=== PATIENT | male | born 1980 | race Caucasian/White ===

== ENCOUNTER 2017-06-07 23:52 | Emergency (ER) | payer MEDICAID ==
[~2017-06-07] VITALS: Ht 172.7 cm; Wt 106.6 kg
[~2017-06-07 23:52] MED LIST: ANAPROX DS550 MG PO; ATIVAN1 MG PO; CLARITIN10 MG PO; CLINDAMYCIN HC300 MG PO; CLINDAMYCIN150 MG PO; DOXYCYCLINE MO100 MG PO; FLONASE0.05 MG/AC NS; HYDROCODONE BIT1 T11 PO; MIRALAX POWDER17 G1 PO; MOTRIN800 MG PO; Motrin,Rufen800 MG PO; NASONEX0.05 MG/AC NAS; PREVACID30 MG PO; SUDAFED60 MG PO; VOLTAREN50 M1 PO; ZITHROMAX Z PA250 MG PO; ZITHROMAX250 MG PO; ZITHROMAX500 MG PO; ZOFRAN ODT4 MG SL; ZYRTEC10 M2 PO
[2017-06-08] MEDS ORDERED: CLINDAMYCIN HC300 MG PO (00:31)
== END 2017-06-08 00:46 | disposition home or self-care (01) ==
LOC: ED 23:52
DX: K08.89 Other specified disorders of teeth and supporting structures (principal); Z88.0 Allergy status to penicillin; Z88.8 Allergy status to other drugs, medicaments and biological substances

== ENCOUNTER 2018-04-27 00:21 | Emergency (ER) | payer SELFPAY ==
[~2018-04-27] VITALS: Ht 172.7 cm; Wt 108.9 kg
[2018-04-27 00:51] LABS: BASO # 0.1 10*3/uL (0.0-0.1); BASO % 0.6 % (0.0-1.0); EOS # 0.1 10*3/uL (0.0-0.4); EOS % 0.7 % (1.0-4.0); HEMATOCRIT 47.2 % (42.0-52.0); HEMOGLOBIN 16.5 g/dl (14.0-18.0); LYMPH # 2.4 10*3/uL (1.3-4.4); LYMPH % 29.6 % (27.0-41.0); MEAN CORPUSCULAR HGB 29.7 pg (27.0-31.0); MEAN PLATELET VOLUME 10.2 fl (9.6-12.3); MONO # 0.6 10*3/uL (0.1-1.0); MONO % 7.2 % (3.0-9.0); NEUT # 4.9 10*3/uL (2.3-7.9); NEUT % 61.5 % (47.0-73.0); PLATELET COUNT AUTOMATED 233 10*3/uL (130-400); RED BLOOD COUNT 5.55 10*6/uL (4.50-5.90); RED CELL DISTRI WIDTH 12.5 % (0-14.5)
[2018-04-27 01:06] LABS: ALBUMIN 3.9 gm/dl (3.1-4.5); ALKALINE PHOSPHATASE 78 U/L (45-117); BUN 15 mg/dl (7-24); CHLORIDE 105 mmol/L (98-107); CREATININE 1.09 mg/dL (0.70-1.30); LIPASE 90 U/L (73-393); POTASSIUM 3.4 mmol/L (3.5-5.1); SGOT/AST 20 IU/L (3-35); SGPT/ALT 59 U/L (12-78); SODIUM 137 mmol/L (136-145); TOTAL PROTEIN 7.8 gm/dL (6.4-8.2)
[2018-04-27] MEDS ORDERED: COLACE100 MG PO (01:42)
[2018-05-29] MEDS ORDERED: IBUPROFEN600 MG PO (17:00)
[2018-05-29] MEDS ORDERED: CLINDAMYCIN HC300 MG PO (17:00)
[2018-06-21] MEDS ORDERED: ASPIRIN ADULT L81 M1 PO (23:18)
[2018-06-23] MEDS ORDERED: VITAMIN D50000 UNIT PO (15:53)
[2018-06-23] MEDS ORDERED: ATORVASTATIN CA40 M1 PO (15:53)
== END 2018-04-27 01:47 | disposition home or self-care (01) ==
LOC: ED 00:21
PROVIDERS: Physician Assistant
DX: K59.00 Constipation, unspecified (principal); R10.9 Unspecified abdominal pain; E78.00 Pure hypercholesterolemia, unspecified; Z88.0 Allergy status to penicillin; Z88.8 Allergy status to other drugs, medicaments and biological substances

== ENCOUNTER 2018-06-19 22:50 | Emergency (ER) | payer SELFPAY ==
[~2018-06-19] VITALS: Ht 172.7 cm; Wt 111.1 kg
--- NOTE | ~2018-06-19 | EKG ---
[place], [place] ELECTROCARDIOGRAM REPORT NAME: LEAH CLEMONS UNIT #: [id number] ROOM: DOCTOR: EPIPHANY DRAFT REPORT BIRTHDATE: [birth year] [facility] Test Date: 2018-06-19 Test Time: 23:30:22 Pat Name: LEAH CLEMONS Department: Room: Gender: Private Pilot: Nicole Anderson : 1980 Requested By: BIBI SEGOVIA Order Number: [id number] Reading MD: Tiffany Underwood MD Measurements Intervals [place] Rate: 98 P: 53 NE: 175 QRS: 148 QRSD: 97 T: 22 QT: 343 QTc: 438 Interpretive Statements Sinus rhythm Left posterior fascicular block Abnormal R-wave progression, late transition Baseline wander in lead(s) V4 Electronically Signed On 06-20-2018 14:07:45 PDT by Tiffany Underwood MD CM:EKGRPT:ELECTROCARDIOGRAM REPORT [id number] BIBI CRISTINA DRAFT REPORT BIBI SEGOVIA DO
[~2018-06-19 22:50] MED LIST changes: +COLACE100 MG PO; +IBUPROFEN600 MG PO
[2018-06-20 00:09] LABS: BASO # 0.1 10*3/uL (0.0-0.1); BASO % 0.4 % (0.0-1.0); EOS % 0.2 % (1.0-4.0); HEMATOCRIT 44.6 % (42.0-52.0); HEMOGLOBIN 15.3 g/dl (14.0-18.0); LYMPH # 1.6 10*3/uL (1.3-4.4); LYMPH % 12.7 % (27.0-41.0); MEAN CELL VOLUME 87.1 fl (80.0-94.0); MEAN CORPUSCULAR HGB 29.9 pg (27.0-31.0); MEAN CORPUSCULAR HGB CONC 34.3 g/dl (33.0-37.0); MEAN PLATELET VOLUME 10.5 fl (9.6-12.3); MONO # 0.7 10*3/uL (0.1-1.0); MONO % 5.6 % (3.0-9.0); NEUT % 80.8 % (47.0-73.0); PLATELET COUNT AUTOMATED 229 10*3/uL (130-400); RED BLOOD COUNT 5.12 10*6/uL (4.50-5.90); RED CELL DISTRI WIDTH 12.8 % (0-14.5); WHITE BLOOD COUNT 12.4 10*3/uL (4.8-10.8)
[2018-06-20 00:14] LABS: ALBUMIN 4.2 gm/dl (3.1-4.5); ALKALINE PHOSPHATASE 81 U/L (45-117); BUN 14 mg/dl (7-24); CHLORIDE 105 mmol/L (98-107); POTASSIUM 3.6 mmol/L (3.5-5.1); SGOT/AST 22 IU/L (3-35); SGPT/ALT 58 U/L (12-78); SODIUM 137 mmol/L (136-145); TOTAL PROTEIN 7.8 gm/dL (6.4-8.2); TROPONIN I < 0.015 ng/ml (<0.045)
[2018-06-21] MEDS ORDERED: ASPIRIN ADULT L81 M1 PO (23:18)
[2018-06-23] MEDS ORDERED: VITAMIN D50000 UNIT PO (15:53)
[2018-06-23] MEDS ORDERED: ATORVASTATIN CA40 M1 PO (15:53)
[2018-09-09] MEDS ORDERED: ANAPROX DS550 MG PO (22:13)
== END 2018-06-20 00:52 | disposition home or self-care (01) ==
LOC: ED 22:50
PROVIDERS: Student in an Organized Health Care Education/Training Program
DX: R00.2 Palpitations (principal); I10 Essential (primary) hypertension; R53.1 Weakness; R42 Dizziness and giddiness; R25.2 Cramp and spasm; Z88.0 Allergy status to penicillin; Z88.8 Allergy status to other drugs, medicaments and biological substances

== ENCOUNTER 2018-07-08 11:22 | Emergency (ER) | payer SELFPAY ==
[~2018-07-08] VITALS: Ht 172.7 cm; Wt 108.9 kg
--- NOTE | ~2018-07-08 | EKG ---
[place], [place] ELECTROCARDIOGRAM REPORT NAME: LEAH CLEMONS UNIT #: [id number] ROOM: DOCTOR: EPIPHANY DRAFT REPORT BIRTHDATE: [birth year] [facility] Test Date: 2018-07-08 Test Time: 11:53:00 Pat Name: LEAH CLEMONS Department: Room: Gender: Human Resources Compliance Manager: Milly Mckeon : 1980 Requested By: JONH FARLEY Order Number: [id number] Reading MD: Benny Saucedo MD Measurements Intervals [place] Rate: 69 P: 39 [place]: 178 QRS: 23 QRSD: 93 T: 36 QT: 363 QTc: 389 Interpretive Statements Sinus rhythm Compared to ECG 06/22/2018 15:58:22 No significant changes Electronically Signed On 07-12-2018 3:45:15 PDT by Benny Saucedo MD CM:EKGRPT:ELECTROCARDIOGRAM REPORT [id number] JONH CRISTINA DRAFT REPORT JONH FARLEY DO
[~2018-07-08 11:22] MED LIST changes: +ASPIRIN ADULT L81 M1 PO; +ATORVASTATIN CA40 M1 PO; +VITAMIN D50000 UNIT PO
[2018-07-08 11:54] LABS: BASO % 0.6 % (0.0-1.0); EOS % 0.3 % (1.0-4.0); HEMATOCRIT 46.4 % (42.0-52.0); HEMOGLOBIN 15.9 g/dl (14.0-18.0); LYMPH # 1.6 10*3/uL (1.3-4.4); LYMPH % 22.3 % (27.0-41.0); MEAN CELL VOLUME 86.6 fl (80.0-94.0); MEAN CORPUSCULAR HGB 29.7 pg (27.0-31.0); MEAN CORPUSCULAR HGB CONC 34.3 g/dl (33.0-37.0); MEAN PLATELET VOLUME 10.6 fl (9.6-12.3); MONO # 0.5 10*3/uL (0.1-1.0); NEUT # 4.9 10*3/uL (2.3-7.9); NEUT % 69.2 % (47.0-73.0); PLATELET COUNT AUTOMATED 216 10*3/uL (130-400); RED BLOOD COUNT 5.36 10*6/uL (4.50-5.90); WHITE BLOOD COUNT 7.1 10*3/uL (4.8-10.8)
[2018-07-08 12:04] LABS: ACT PARTIAL THROMBO TIME 25.2 SECONDS (20.8-31.5)
[2018-07-08 12:10] LABS: ALBUMIN 4.3 gm/dl (3.1-4.5); ALKALINE PHOSPHATASE 84 U/L (45-117); BUN 14 mg/dl (7-24); CHLORIDE 107 mmol/L (98-107); CREATININE 1.02 mg/dL (0.70-1.30); LIPASE 63 U/L (73-393); POTASSIUM 4.1 mmol/L (3.5-5.1); SGOT/AST 26 IU/L (3-35); SGPT/ALT 71 U/L (12-78); SODIUM 140 mmol/L (136-145); TOTAL PROTEIN 7.9 gm/dL (6.4-8.2)
[2018-07-08 12:11] LABS: TROPONIN I < 0.015 ng/ml (<0.045)
[2018-07-08] MEDS ORDERED: EC NAPROSYN500 MG PO (15:13)
[2018-09-09] MEDS ORDERED: ANAPROX DS550 MG PO (22:13)
== END 2018-07-08 15:17 | disposition home or self-care (01) ==
LOC: ED 11:22
PROVIDERS: Emergency Medicine
DX: R51 Headache (principal); R53.83 Other fatigue; H53.8 Other visual disturbances; K21.9 Gastro-esophageal reflux disease without esophagitis; E78.5 Hyperlipidemia, unspecified; E66.01 Morbid (severe) obesity due to excess calories; Z88.0 Allergy status to penicillin; Z91.018 Allergy to other foods; Z88.8 Allergy status to other drugs, medicaments and biological substances; Z79.82 Long term (current) use of aspirin; Z87.891 Personal history of nicotine dependence

== ENCOUNTER 2018-07-27 12:01 | Emergency (ER) | payer SELFPAY ==
[~2018-07-27] VITALS: Ht 172.7 cm; Wt 109.8 kg
--- NOTE | ~2018-07-27 | EKG ---
[place], [place] ELECTROCARDIOGRAM REPORT NAME: LEAH CLEMONS UNIT #: [id number] ROOM: DOCTOR: EPIPHANY DRAFT REPORT BIRTHDATE: [birth year] [facility] Test Date: 2018-07-27 Test Time: 12:09:49 Pat Name: LEAH CLEMONS Department: Room: Gender: Triage Licensed Practical Nurse: : 1980 Requested By: SOLE MI Order Number: [id number] Reading MD: Jesus Pena MD Measurements Intervals [place] Rate: 66 P: 33 [place]: 186 QRS: 3 QRSD: 97 T: 25 QT: 380 QTc: 399 Interpretive Statements Sinus rhythm Abnormal R-wave progression, late transition Compared to ECG 07/08/2018 11:53:00 No significant changes Electronically Signed On 07-28-2018 12:33:11 PDT by Jesus Pena MD CM:EKGRPT:ELECTROCARDIOGRAM REPORT [id number] SOLE GRANDE DRAFT REPORT SOLE MI M.D.
[~2018-07-27 12:01] MED LIST changes: +EC NAPROSYN500 MG PO
[2018-07-27 12:17] LABS: BASO % 0.5 % (0.0-1.0); EOS # 0.1 10*3/uL (0.0-0.4); EOS % 0.9 % (1.0-4.0); HEMOGLOBIN 15.9 g/dl (14.0-18.0); LYMPH % 25.7 % (27.0-41.0); MEAN CELL VOLUME 86.6 fl (80.0-94.0); MEAN CORPUSCULAR HGB 29.9 pg (27.0-31.0); MEAN CORPUSCULAR HGB CONC 34.6 g/dl (33.0-37.0); MEAN PLATELET VOLUME 10.6 fl (9.6-12.3); MONO # 0.6 10*3/uL (0.1-1.0); MONO % 7.9 % (3.0-9.0); NEUT # 4.9 10*3/uL (2.3-7.9); NEUT % 64.3 % (47.0-73.0); PLATELET COUNT AUTOMATED 220 10*3/uL (130-400); RED BLOOD COUNT 5.31 10*6/uL (4.50-5.90); RED CELL DISTRI WIDTH 12.7 % (0-14.5); WHITE BLOOD COUNT 7.7 10*3/uL (4.8-10.8)
[2018-07-27 12:28] LABS: ACT PARTIAL THROMBO TIME 24.7 SECONDS (20.8-31.5); INTERNATIONAL NORM RATIO 0.9 (2.0-3.5)
[2018-07-27 12:34] LABS: ALBUMIN 3.8 gm/dl (3.1-4.5); ALKALINE PHOSPHATASE 87 U/L (45-117); BUN 13 mg/dl (7-24); CHLORIDE 107 mmol/L (98-107); CREATININE 1.23 mg/dL (0.70-1.30); SGOT/AST 19 IU/L (3-35); SGPT/ALT 53 U/L (12-78); SODIUM 139 mmol/L (136-145); TOTAL PROTEIN 7.6 gm/dL (6.4-8.2)
[2018-07-27 12:38] LABS: TROPONIN I < 0.015 ng/ml (<0.045)
[2018-07-27] MEDS ORDERED: METOPROLOL SUCC25 M2 PO (12:54)
[2018-07-27] MEDS ORDERED: OMEPRAZOLE D/R20 MG PO (12:55)
[2018-07-27] MEDS ORDERED: ZESTRIL10 MG PO (14:40)
[2018-09-09] MEDS ORDERED: ANAPROX DS550 MG PO (22:13)
== END 2018-07-27 14:43 | disposition home or self-care (01) ==
LOC: ED 12:01
PROVIDERS: Emergency Medicine
DX: R07.89 Other chest pain (principal); F41.9 Anxiety disorder, unspecified; R06.02 Shortness of breath; R51 Headache; R00.2 Palpitations; K21.9 Gastro-esophageal reflux disease without esophagitis; E78.5 Hyperlipidemia, unspecified; E66.01 Morbid (severe) obesity due to excess calories; F43.10 Post-traumatic stress disorder, unspecified; Z79.899 Other long term (current) drug therapy; Z88.0 Allergy status to penicillin; Z88.8 Allergy status to other drugs, medicaments and biological substances; Z91.018 Allergy to other foods; Z87.891 Personal history of nicotine dependence

== ENCOUNTER 2018-07-28 11:29 | Emergency (ER) | payer SELFPAY ==
[~2018-07-28] VITALS: Ht 172.7 cm; Wt 109.8 kg
--- NOTE | ~2018-07-28 | EKG ---
[place], [place] ELECTROCARDIOGRAM REPORT NAME: LEAH CLEMONS UNIT #: [id number] ROOM: DOCTOR: EPIPHANY DRAFT REPORT BIRTHDATE: [address] 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
[~2018-07-28 11:29] MED LIST changes: +METOPROLOL SUCC25 M2 PO; +OMEPRAZOLE D/R20 MG PO; +ZESTRIL10 MG PO
[2018-07-28 11:58] LABS: BASO % 0.7 % (0.0-1.0); EOS # 0.1 10*3/uL (0.0-0.4); EOS % 0.9 % (1.0-4.0); HEMATOCRIT 41.1 % (42.0-52.0); HEMOGLOBIN 14.4 g/dl (14.0-18.0); LYMPH # 1.5 10*3/uL (1.3-4.4); LYMPH % 24.9 % (27.0-41.0); MEAN CELL VOLUME 85.6 fl (80.0-94.0); MEAN PLATELET VOLUME 10.4 fl (9.6-12.3); MONO # 0.4 10*3/uL (0.1-1.0); MONO % 7.5 % (3.0-9.0); NEUT # 3.8 10*3/uL (2.3-7.9); NEUT % 65.5 % (47.0-73.0); PLATELET COUNT AUTOMATED 198 10*3/uL (130-400); RED CELL DISTRI WIDTH 12.7 % (0-14.5); WHITE BLOOD COUNT 5.8 10*3/uL (4.8-10.8)
[2018-07-28 12:09] LABS: ACT PARTIAL THROMBO TIME 24.4 SECONDS (20.8-31.5); INTERNATIONAL NORM RATIO 0.9 (2.0-3.5)
[2018-07-28 12:14] LABS: ALBUMIN 3.6 gm/dl (3.1-4.5); ALKALINE PHOSPHATASE 76 U/L (45-117); BUN 13 mg/dl (7-24); CHLORIDE 110 mmol/L (98-107); CREATININE 1.14 mg/dL (0.70-1.30); POTASSIUM 3.7 mmol/L (3.5-5.1); SGOT/AST 19 IU/L (3-35); SGPT/ALT 48 U/L (12-78); SODIUM 141 mmol/L (136-145); TOTAL PROTEIN 7.1 gm/dL (6.4-8.2)
[2018-07-28 12:17] LABS: TROPONIN I < 0.015 ng/ml (<0.045)
[2018-09-09] MEDS ORDERED: ANAPROX DS550 MG PO (22:13)
== END 2018-07-28 12:45 | disposition home or self-care (01) ==
LOC: ED 11:29
PROVIDERS: Emergency Medicine
DX: F41.9 Anxiety disorder, unspecified (principal); R07.89 Other chest pain; R06.02 Shortness of breath; F43.10 Post-traumatic stress disorder, unspecified; K21.9 Gastro-esophageal reflux disease without esophagitis; E78.5 Hyperlipidemia, unspecified; E66.01 Morbid (severe) obesity due to excess calories; I10 Essential (primary) hypertension; Z88.0 Allergy status to penicillin; Z88.8 Allergy status to other drugs, medicaments and biological substances; Z91.018 Allergy to other foods; Z79.899 Other long term (current) drug therapy; Z87.891 Personal history of nicotine dependence

== ENCOUNTER 2018-09-08 14:59 | Emergency (ER) | payer SELFPAY ==
[~2018-09-08] VITALS: Ht 172.7 cm; Wt 108.4 kg
[2018-09-08] MEDS ORDERED: IBU800 MG PO (15:57)
[2018-09-08] MEDS ORDERED: CLEOCIN HCL150 MG PO (15:57)
[2018-09-09] MEDS ORDERED: ANAPROX DS550 MG PO (22:13)
== END 2018-09-08 16:11 | disposition home or self-care (01) ==
LOC: ED 14:59
DX: K04.7 Periapical abscess without sinus (principal); K02.9 Dental caries, unspecified; Z87.891 Personal history of nicotine dependence; Z79.899 Other long term (current) drug therapy; Z88.0 Allergy status to penicillin; Z88.8 Allergy status to other drugs, medicaments and biological substances; Z91.018 Allergy to other foods

== ENCOUNTER 2019-11-30 21:02 | Emergency (ER) | payer SELFPAY ==
[~2019-11-30] VITALS: Ht 172.7 cm; Wt 106.6 kg
[~2019-11-30 21:02] MED LIST changes: +CLEOCIN HCL150 MG PO; +IBU800 MG PO
[2019-11-30] MEDS ORDERED: DIAZEPAM5 MG PO (21:33)
[2019-11-30] MEDS ORDERED: GEMFIBROZIL600 MG PO (21:33)
[2019-11-30] MEDS ORDERED: VITAMIN D350 MC2 GT (21:34)
[2019-11-30 22:49] LABS: BASO # 0.1 10*3/uL (0.0-0.1); BASO % 0.8 % (0.0-1.0); EOS # 0.1 10*3/uL (0.0-0.4); EOS % 1.4 % (1.0-4.0); LYMPH % 25.7 % (27.0-41.0); MEAN CELL VOLUME 84.8 fl (80.0-94.0); MEAN CORPUSCULAR HGB 29.6 pg (27.0-31.0); MEAN CORPUSCULAR HGB CONC 34.9 g/dl (33.0-37.0); MEAN PLATELET VOLUME 10.4 fl (9.6-12.3); MONO # 0.7 10*3/uL (0.1-1.0); MONO % 8.4 % (3.0-9.0); NEUT # 4.9 10*3/uL (2.3-7.9); NEUT % 63.3 % (47.0-73.0); PLATELET COUNT AUTOMATED 247 10*3/uL (130-400); RED BLOOD COUNT 5.07 10*6/uL (4.50-5.90); RED CELL DISTRI WIDTH 13.2 % (0-14.5); WHITE BLOOD COUNT 7.7 10*3/uL (4.8-10.8)
[2019-11-30 23:07] LABS: ALKALINE PHOSPHATASE 67 U/L (45-117); BUN 13 mg/dl (7-24); CHLORIDE 106 mmol/L (98-107); CREATININE 1.14 mg/dL (0.70-1.30); POTASSIUM 3.4 mmol/L (3.5-5.1); SGOT/AST 16 IU/L (3-35); SGPT/ALT 49 U/L (12-78); SODIUM 138 mmol/L (136-145); TOTAL PROTEIN 7.7 gm/dL (6.4-8.2); TROPONIN I < 0.015 ng/ml (<0.045)
== END 2019-12-01 02:00 | disposition home or self-care (01) ==
LOC: ED 21:02
PROVIDERS: Emergency Medicine
DX: R42 Dizziness and giddiness (principal); R07.9 Chest pain, unspecified; R00.1 Bradycardia, unspecified; R53.1 Weakness; Z88.0 Allergy status to penicillin; Z91.018 Allergy to other foods; Z88.8 Allergy status to other drugs, medicaments and biological substances; Z79.899 Other long term (current) drug therapy; Z87.891 Personal history of nicotine dependence

== ENCOUNTER 2019-12-04 20:05 | Observation (INO) | payer SELFPAY ==
[~2019-12-04] VITALS: Ht 172.7 cm; Wt 106.1 kg
[~2019-12-04 20:05] MED LIST changes: +DIAZEPAM5 MG PO; +GEMFIBROZIL600 MG PO; +VITAMIN D350 MC2 GT
[2019-12-04 20:13] VITALS: BP 145/87
[2019-12-04 20:39] LABS: BASO # 0.1 10*3/uL (0.0-0.1); BASO % 0.6 % (0.0-1.0); EOS # 0.1 10*3/uL (0.0-0.4); EOS % 1.2 % (1.0-4.0); HEMATOCRIT 41.5 % (42.0-52.0); LYMPH % 24.4 % (27.0-41.0); MEAN CORPUSCULAR HGB 29.4 pg (27.0-31.0); MEAN CORPUSCULAR HGB CONC 34.9 g/dl (33.0-37.0); MEAN PLATELET VOLUME 10.2 fl (9.6-12.3); MONO # 0.7 10*3/uL (0.1-1.0); NEUT # 5.2 10*3/uL (2.3-7.9); NEUT % 64.3 % (47.0-73.0); PLATELET COUNT AUTOMATED 246 10*3/uL (130-400); RED BLOOD COUNT 4.94 10*6/uL (4.50-5.90); RED CELL DISTRI WIDTH 13.1 % (0-14.5)
[2019-12-04 20:48] LABS: INTERNATIONAL NORM RATIO 1.1 (2.0-3.5)
[2019-12-04 20:58] LABS: ALBUMIN 4.4 gm/dl (3.1-4.5); ALKALINE PHOSPHATASE 69 U/L (45-117); BUN 13 mg/dl (7-24); CHLORIDE 110 mmol/L (98-107); CREATININE 1.36 mg/dL (0.70-1.30); POTASSIUM 3.6 mmol/L (3.5-5.1); SGOT/AST 18 IU/L (3-35); SGPT/ALT 48 U/L (12-78); SODIUM 140 mmol/L (136-145)
[2019-12-04 21:03] LABS: TROPONIN I < 0.015 ng/ml (<0.045)
[2019-12-04 22:38] VITALS: BP 135/99
--- NOTE | 2019-12-04 22:47 | NUR ---
CALLED FOR TRANSPORT TO [facility] RN NOT READY YET WILL CALL WHEN READY FOR PT, SBAR FAXED
[2019-12-04 23:00] VITALS: BP 138/86
--- NOTE | 2019-12-04 23:00 | NUR ---
A 39, admitted to 4E OBSERVATION, under the services of MIGUEL A Gonzalez DO with a diagnosis of CHEST PAIN/TACHYCARDIA. Chief complaint is FAST HEART RATE-PALPATION. Patient arrived via wheel chair from ER. Monitor applied. Initial assessment completed. Vital signs taken and recorded. MIGUEL A GONZALEZ DO notified of admission to the unit. Orders received. See assessment for past medical history, medications and allergies. Patient and/or family oriented to unit. visitation policy reviewed. Clothing/patient valuable form completed. NICHOLAS CAMPBELL A
[2019-12-05] VITALS: BP 138/86
--- NOTE | 2019-12-05 05:52 | NUR ---
PATIENT SLEEPING WITH EASY AND REGULAR RESPERS ON ROOM AIR. CALL LIGHT IS WITHIN REACH.
[2019-12-05 06:43] LABS: BASO % 0.6 % (0.0-1.0); EOS # 0.1 10*3/uL (0.0-0.4); EOS % 1.8 % (1.0-4.0); HEMATOCRIT 40.3 % (42.0-52.0); LYMPH # 2.5 10*3/uL (1.3-4.4); LYMPH % 37.3 % (27.0-41.0); MEAN CELL VOLUME 85.4 fl (80.0-94.0); MEAN PLATELET VOLUME 10.2 fl (9.6-12.3); MONO # 0.7 10*3/uL (0.1-1.0); MONO % 10.1 % (3.0-9.0); NEUT # 3.3 10*3/uL (2.3-7.9); NEUT % 49.9 % (47.0-73.0); PLATELET COUNT AUTOMATED 221 10*3/uL (130-400); RED BLOOD COUNT 4.72 10*6/uL (4.50-5.90); RED CELL DISTRI WIDTH 13.2 % (0-14.5); WHITE BLOOD COUNT 6.6 10*3/uL (4.8-10.8)
[2019-12-05 07:08] LABS: ALBUMIN 3.7 gm/dl (3.1-4.5); BUN 13 mg/dl (7-24); CHLORIDE 110 mmol/L (98-107); CREATININE 1.12 mg/dL (0.70-1.30); POTASSIUM 3.7 mmol/L (3.5-5.1); SGOT/AST 16 IU/L (3-35); SGPT/ALT 41 U/L (12-78); SODIUM 141 mmol/L (136-145); TOTAL PROTEIN 6.9 gm/dL (6.4-8.2)
[2019-12-05 07:17] LABS: ALKALINE PHOSPHATASE 60 U/L (45-117); FREE T4 0.93 ng/dl (0.76-1.46)
[2019-12-05 08:00] VITALS: BP 120/72; BP 127/82
--- NOTE | 2019-12-05 08:07 | NUR ---
TYLENOL GIVEN FOR C/O HEADACHE. WILL MONITOR.
--- NOTE | 2019-12-05 09:00 | NUR ---
Duplicating Machine Operator in to talk to patient. Patient states lives at home with . There are 3 steps in the home. Physician: akthryn mar [facility]acy: [facility] Patient's level of ADLs: INDEPENDENT Patient has working utilities: all working DME: none Follow-up physician's appointment after d/c: will be made by hospitalist nurse director upon discharge Does patient want to access PORTAL?: no Discharge plan discussed with patient, he states she lives at home with his , he is independent in adls and ambulation, drives, he will return home when discharged, family will transport him home, case management will follow. JOSEPHINE MARTINEZ
--- NOTE | 2019-12-05 09:17 | NUR ---
TYLENOL NOT EFFECTIVE PER PT. WILL MONITOR.
--- NOTE | 2019-12-05 09:26 | NUR ---
NORCO GIVEN FOR C/O HEADACHE. RATES 5/10 ON PAIN SCALE. WILL MONITOR.
[2019-12-05] MEDS ORDERED: LOPRESSOR25 MG PO (09:30)
--- NOTE | 2019-12-05 09:45 | NUR ---
[facility] Discharge instructions reviewed with patient/family. Patient receptive and verbalizes understanding. Follow-up care arranged. Written instructions given to patient/family. MARCELLUS SANCHEZ
== END 2019-12-05 09:45 | disposition home or self-care (01) ==
LOC: ED 20:05 → EDHOLD 21:58 → 4E 22:32
PROVIDERS: Emergency Medicine; Internal Medicine; ADMIT Student in an Organized Health Care Education/Training Program
DX: R07.89 Other chest pain (principal); R00.0 Tachycardia, unspecified; N17.0 Acute kidney failure with tubular necrosis; R51 Headache; R73.03 Prediabetes; E78.5 Hyperlipidemia, unspecified; F41.9 Anxiety disorder, unspecified; I10 Essential (primary) hypertension; R79.82 Elevated C-reactive protein (CRP); E55.9 Vitamin D deficiency, unspecified; R73.9 Hyperglycemia, unspecified; E87.8 Other disorders of electrolyte and fluid balance, not elsewhere classified

== ENCOUNTER 2019-12-16 23:28 | Emergency (ER) | payer SELFPAY ==
[~2019-12-16] VITALS: Ht 172.7 cm; Wt 106.6 kg
[~2019-12-16 23:28] MED LIST changes: +LOPRESSOR25 MG PO
[2019-12-17] LABS: BASO # 0.1 10*3/uL (0.0-0.1); BASO % 0.7 % (0.0-1.0); EOS % 0.5 % (1.0-4.0); HEMATOCRIT 42.6 % (42.0-52.0); LYMPH % 23.9 % (27.0-41.0); MEAN CELL VOLUME 83.5 fl (80.0-94.0); MEAN CORPUSCULAR HGB CONC 34.7 g/dl (33.0-37.0); MEAN PLATELET VOLUME 10.5 fl (9.6-12.3); MONO # 0.6 10*3/uL (0.1-1.0); MONO % 7.2 % (3.0-9.0); NEUT # 5.8 10*3/uL (2.3-7.9); NEUT % 67.6 % (47.0-73.0); PLATELET COUNT AUTOMATED 254 10*3/uL (130-400); RED CELL DISTRI WIDTH 12.6 % (0-14.5); WHITE BLOOD COUNT 8.5 10*3/uL (4.8-10.8)
[2019-12-17 00:12] LABS: ACT PARTIAL THROMBO TIME 27.4 SECONDS (20.0-32.1)
[2019-12-17 00:17] LABS: ALBUMIN 4.2 gm/dl (3.1-4.5); ALKALINE PHOSPHATASE 67 U/L (45-117); BUN 16 mg/dl (7-24); CHLORIDE 109 mmol/L (98-107); CREATININE 1.15 mg/dL (0.70-1.30); SGOT/AST 17 IU/L (3-35); SGPT/ALT 44 U/L (12-78); SODIUM 139 mmol/L (136-145)
[2019-12-17 00:19] LABS: TROPONIN I < 0.015 ng/ml (<0.045)
[2019-12-17] MEDS ORDERED: Motrin,Rufen800 MG PO (01:54)
== END 2019-12-17 02:02 | disposition home or self-care (01) ==
LOC: ED 23:28
PROVIDERS: Emergency Medicine Emergency Medical Services
DX: R07.89 Other chest pain (principal); F43.10 Post-traumatic stress disorder, unspecified; F41.9 Anxiety disorder, unspecified; K21.9 Gastro-esophageal reflux disease without esophagitis; E78.5 Hyperlipidemia, unspecified; I10 Essential (primary) hypertension; Z88.0 Allergy status to penicillin; Z88.8 Allergy status to other drugs, medicaments and biological substances; Z79.899 Other long term (current) drug therapy; X58.XXXA Exposure to other specified factors, initial encounter; Y93.89 Activity, other specified; Y92.89 Other specified places as the place of occurrence of the external cause; Y99.8 Other external cause status

== ENCOUNTER 2020-12-26 03:03 | Emergency (ER) | payer SELFPAY ==
[~2020-12-26] VITALS: Ht 172.7 cm; Wt 108.9 kg
[2020-12-26 03:38] LABS: BASO # 0.1 10*3/uL (0.0-0.1); BASO % 0.5 % (0.0-1.0); EOS # 0.1 10*3/uL (0.0-0.4); EOS % 0.9 % (1.0-4.0); HEMATOCRIT 43.3 % (42.0-52.0); LYMPH # 2.7 10*3/uL (1.3-4.4); LYMPH % 28.6 % (27.0-41.0); MEAN CELL VOLUME 85.4 fl (80.0-94.0); MEAN CORPUSCULAR HGB 29.4 pg (27.0-31.0); MEAN CORPUSCULAR HGB CONC 34.4 g/dl (33.0-37.0); MEAN PLATELET VOLUME 10.3 fl (9.6-12.3); MONO # 0.6 10*3/uL (0.1-1.0); MONO % 6.5 % (3.0-9.0); NEUT # 5.9 10*3/uL (2.3-7.9); NEUT % 63.2 % (47.0-73.0); PLATELET COUNT AUTOMATED 252 10*3/uL (130-400); RED BLOOD COUNT 5.07 10*6/uL (4.50-5.90); RED CELL DISTRI WIDTH 12.7 % (0-14.5); WHITE BLOOD COUNT 9.3 10*3/uL (4.8-10.8)
[2020-12-26 03:54] LABS: ALBUMIN 4.2 gm/dl (3.1-4.5); ALKALINE PHOSPHATASE 70 U/L (45-117); BUN 16 mg/dl (7-24); CHLORIDE 107 mmol/L (98-107); CREATININE 1.08 mg/dL (0.70-1.30); POTASSIUM 3.9 mmol/L (3.5-5.1); SGOT/AST 27 IU/L (3-35); SGPT/ALT 51 U/L (12-78); SODIUM 139 mmol/L (136-145); TOTAL PROTEIN 7.6 gm/dL (6.4-8.2)
== END 2020-12-26 05:13 | disposition home or self-care (01) ==
LOC: ED 03:03
PROVIDERS: Internal Medicine
DX: F41.9 Anxiety disorder, unspecified (principal); Z20.822 Contact with and (suspected) exposure to COVID-19; Z88.0 Allergy status to penicillin; Z88.8 Allergy status to other drugs, medicaments and biological substances; Z79.899 Other long term (current) drug therapy; Z87.891 Personal history of nicotine dependence

== ENCOUNTER 2020-12-27 14:21 | Emergency (ER) | payer SELFPAY ==
[~2020-12-27] VITALS: Ht 172.7 cm; Wt 108.9 kg
[2020-12-27 20:34] LABS: BILIRUBIN Negative (Negative); BLOOD Negative (Negative); CLARITY Clear (Clear); COLOR Yellow (Yellow); GLUCOSE Negative (Negative); KETONE Negative (Negative); LEUKO ESTERASE Negative (Negative); NITRITE Negative (Negative); UROBILINOGEN 0.2 E.U./dl (0.0-1.0)
[2020-12-27 20:48] LABS: EPITHELIAL CELLS 0-2; RBC 0-2 rbc/hpf (0-2)
[2020-12-27 20:55] LABS: BASO % 0.2 % (0.0-1.0); HEMATOCRIT 44.9 % (42.0-52.0); LYMPH % 9.8 % (27.0-41.0); MEAN CELL VOLUME 85.7 fl (80.0-94.0); MEAN CORPUSCULAR HGB 29.6 pg (27.0-31.0); MEAN CORPUSCULAR HGB CONC 34.5 g/dl (33.0-37.0); MEAN PLATELET VOLUME 10.4 fl (9.6-12.3); MONO # 0.2 10*3/uL (0.1-1.0); MONO % 1.8 % (3.0-9.0); NEUT # 9.2 10*3/uL (2.3-7.9); NEUT % 87.9 % (47.0-73.0); PLATELET COUNT AUTOMATED 260 10*3/uL (130-400); RED BLOOD COUNT 5.24 10*6/uL (4.50-5.90); RED CELL DISTRI WIDTH 12.8 % (0-14.5); WHITE BLOOD COUNT 10.5 10*3/uL (4.8-10.8)
[2020-12-27 21:19] LABS: ALBUMIN 4.5 gm/dl (3.1-4.5); ALKALINE PHOSPHATASE 78 U/L (45-117); BUN 16 mg/dl (7-24); CHLORIDE 105 mmol/L (98-107); CREATININE 0.98 mg/dL (0.70-1.30); POTASSIUM 4.1 mmol/L (3.5-5.1); SGOT/AST 22 IU/L (3-35); SGPT/ALT 57 U/L (12-78); SODIUM 138 mmol/L (136-145); TOTAL PROTEIN 8.3 gm/dL (6.4-8.2)
== END 2020-12-27 23:50 | disposition home or self-care (01) ==
LOC: ED 14:21
PROVIDERS: Emergency Medicine
DX: R53.1 Weakness (principal); F41.9 Anxiety disorder, unspecified; K21.9 Gastro-esophageal reflux disease without esophagitis; I10 Essential (primary) hypertension; Z79.899 Other long term (current) drug therapy; Z88.0 Allergy status to penicillin; Z88.8 Allergy status to other drugs, medicaments and biological substances; Z87.891 Personal history of nicotine dependence

== ENCOUNTER 2021-03-15 22:14 | Emergency (ER) | payer SELFPAY ==
[~2021-03-15] VITALS: Ht 172.7 cm; Wt 104.3 kg
[2021-03-15] MEDS ORDERED: PREDNISONE20 M1 PO (22:37)
[2021-03-15] MEDS ORDERED: AVPAK AZITHROM250 MG PO (22:37)
[2021-03-15] MEDS ORDERED: CORTISPORIN SUS10 ML OT (22:37)
[2021-03-15] MEDS ORDERED: MUCINEX D ER 11 EACH PO (22:37)
== END 2021-03-15 23:30 | disposition home or self-care (01) ==
LOC: ED 22:14
DX: J01.90 Acute sinusitis, unspecified (principal); H60.92 Unspecified otitis externa, left ear

== ENCOUNTER 2021-03-28 20:01 | Emergency (ER) | payer SELFPAY ==
[~2021-03-28 20:01] MED LIST changes: +AVPAK AZITHROM250 MG PO; +CORTISPORIN SUS10 ML OT; +MUCINEX D ER 11 EACH PO; +PREDNISONE20 M1 PO
[2021-03-28] MEDS ORDERED: Lopressor25 MG PO (20:15)
== END 2021-03-28 21:30 | disposition home or self-care (01) ==
LOC: ED 20:01
DX: T59.891A Toxic effect of other specified gases, fumes and vapors, accidental (unintentional), initial encounter (principal); R42 Dizziness and giddiness; Y92.89 Other specified places as the place of occurrence of the external cause